=== PATIENT | female | born 1970 | race Caucasian/White ===

== ENCOUNTER 2019-07-28 12:46 | Emergency (ER) | payer SELFPAY ==
[2019-07-28] MEDS ORDERED: 0.9 % SODIUM CHLORIDE 1,000 ML IV ONE (12:56)
--- NOTE | 2019-07-28 13:00 | ED Physician Documentation ---
Chest Pain - HISTORIAN Historian: patient - HPI Chief Complaint: Chest Pain Additional Information: 49 year old female presents to the ER with c/o left sided chest discomfort that woke her at 4 a.m this morning; she states that her left arm feels heavy (she is neurovascularly intact). She denies any n/v/d. No diaphoresis. She moved to the [facility] 3 weeks ago from [place] and states that she is on psych meds but has not had them for a few weeks. She states that she had a cardiac episode in the past but cannot remember. No hx of stents or heart attack. Onset: hours Timing: sudden onset Duration: sudden-onset Last known Well Date: 07/28/19 Last Known Well Time: 04:00 Context: sleep Severity: mild Quality: aching Chest Pain Radiation: arms (left arm) Chest Pain Signs/Symptoms: denies: nausea, vomiting Worsened By: nothing Relieved By: nothing - ROS CONST: none MS/LYMPH: none GI/: none EYES/ENT: none SKIN/ENDO: none NEURO/PSYCH: none - PAST HX DE risk factors: other (Cardiac hx but does not know what it is) DVT/PE Risk Factors: other (depression, bipolar) TAD/AAA risk factors: none Neuro deficit: none GI disease: none Lung disease: none Surgeries/Procedures: appendectomy, other (BTL, right nipple) Allergies/Adverse Reactions: Allergies Allergy/AdvReac Type Severity Reaction Status Date / Time No Known Allergies Allergy Unverified 07/28/19 13:25 Home Medications: Ambulatory Orders Medication Instructions Recorded NK 07/28/19 - SOCIAL HX Smoking History: greater than 1 pack/day Alcohol Use: occasionally Drug Use: marijuana - FAMILY HX Family HX: none - REVIEWED ASSESSMENTS Nursing Assessment Reviewed: Yes Vitals Reviewed: Yes Progress - Progress Progress: 13:[address] Hooper with Cardiology and she will accept patient due to inability to get immediate cardiac markers. ED Results Lab/Radiology - Radiology Radiology Impressions: Examination: PA and lateral chest. History: Evaluate lung fernando. Comparison exam: None provided. Findings: PA and lateral views of the chest demonstrates a normal cardiac and mediastinal silhouette. Basilar scarring. No focal infiltrate. No blunting of the costophrenic margins. Osseous structures are appropriate for age. Impression: No acute pulmonary process. Electronically signed on Jul 28, 2019 1:19:29 PM DIRECTOR OF CATEGORY MANAGEMENT by: Choco Dewey - Orders Orders: ED Orders Category Date Time Status Continuous EKG monitoring Q30M Care 07/28/19 12:50 Active Continuous Pulse Oximetry Q30M Care 07/28/19 12:[address] IV Lock 1T Care 07/28/19 12:50 Active CBC/PLATELET/DIFF Stat Lab 07/28/19 12:50 Ordered CKMB Stat Lab 07/28/19 12:50 Ordered CMP Stat Lab 07/28/19 12:50 Ordered CREATINE KINASE Stat Lab 07/28/19 12:50 Ordered TROPONIN I Stat Lab 07/28/19 12:50 Ordered 0.9 % Sodium Chloride [Normal Saline] 1,000 ml Med 07/28/19 12:56 Active IV NOW Oxygen Daily Oxygen 07/28/19 13:00 Ordered EKG WITH COMPARISON Stat Ther 07/28/19 12:50 Ordered Chest Pain Physical Exam - EXAM General Appearance: no acute distress, alert EENT: eye inspection normal, ENT inspection normal, pharynx normal, KRISTAL, TM's nml Neck: nml inspection, no carotid bruit Respiratory: nml breath sounds CVS: reg. rate & rhythm Abdomen: soft, normal bowel sounds Skin: warm/dry, normal color Extremities: normal range of motion Neuro: oriented X3, CN's nml as tested, motor nml, sensation nml, cognition normal Discharge Clincal Impression: Chest pain Referrals: Primary Doctor,No [Primary Care Provider] - 2 Days Comments: Dr. Hooper with Cardiology and she will accept patient due to inability to get immediate cardiac markers. Condition: Good Disposition: 02 XFER [facility] Decision to Admit: NO Decision Time: 13:35
[2019-07-28] MEDS ORDERED: ASPIRIN 325 MG TABLET PO ONE (13:17)
--- NOTE | 2019-07-28 13:25 | Diagnostic Imaging Report ---
PATIENT MR#: [id number] PATIENT PATIENT NAME: TIARA NUNEZ DATE OF : 1970 REFERRING PHYSICIAN: Laverne Boyd EXAM DATE: 07/28/2019 ACCESSION NUMBER: [id number] EXAM DESCRIPTION: CHEST 2VIEW Examination: PA and lateral chest. History: Evaluate lung fernando. Comparison exam: None provided. Findings: PA and lateral views of the chest demonstrates a normal cardiac and mediastinal silhouette. Basilar scarring. No focal infiltrate. No blunting of the costophrenic margins. Osseous structures are appropriate fo r age. Impression: No acute pulmonary process. Read by: Dr. Choco Dewey Transcribed by: Transcribed Date: Electronically signed by: Dr. Choco Dewey Date signed: 07/28/2019 1:24:19 PM
[2019-07-28 13:58] VITALS: BP 129/77
== END 2019-07-28 13:50 | disposition short-term general hospital (02) ==
LOC: ED 12:46
DX: R07.9 Chest pain, unspecified (principal)
CPT/HCPCS: 71046; 85025; 93005; 96360; 99282; 99284; A9270; J7030; 80053; 82550; 82553; 84484; S1016